=== PATIENT | female | born 1945 | race Caucasian/White ===

== ENCOUNTER 2016-02-08 04:57 | Observation (INO) | payer MEDICARE, OTHER ==
[~2016-02-08] VITALS: Ht 162.6 cm; Wt 106.2 kg
[2016-02-08] MEDS ORDERED: ASPIRIN 81 MG TAB.CHEW PO ONE (05:30)
[2016-02-08] MEDS ORDERED: MORPHINE SULFATE 2 MG/ML DISP.SYRIN. IV PRN (05:30)
[2016-02-08] MEDS ORDERED: ONDANSETRON PF 4 MG/2 ML VIAL. IV PRN ×2 (05:30→10:30)
[2016-02-08 05:55] LABS: BASO % 0 % (0-3); CALCIUM 8.7 mg/dL (8.5-10.1); CREATININE 1.2 mg/dL (0.6-1.0); EOS % 0 % (0-3); GFR 44.5; HEMATOCRIT 37.6 % (36.0-47.0); HEMOGLOBIN 11.8 g/dL (12.0-15.5); LYMPH # 1.2 x10^3/uL (1.0-4.8); LYMPH % 10 % (24-48); MEAN CORPUSCULAR HEMOGLOBIN 26 pg (25-35); MEAN CORPUSCULAR HGB CONC 31 g/dL (31-37); MEAN CORPUSCULAR VOLUME 83 fL (79-100); MONO % 6 % (0-9); NEUT % 85 % (31-73); PLATELET COUNT 285 x10^3/uL (140-400); POTASSIUM 4.3 mmol/L (3.5-5.1); RED BLOOD COUNT 4.53 x10^6/uL (3.50-5.40); WHITE BLOOD COUNT 12.4 x10^3/uL (4.0-11.0)
--- NOTE | 2016-02-08 05:57 | PHYS DOC ---
Past Medical History Past Medical History: Anxiety, CAD, Depression, GERD, High Cholesterol, Hypertension, Hypothyroid, Other Additional Past Medical Histor: GOUT, SLEEP APNEA Past Surgical History: Coronary Bypass Surgery Alcohol Use: None Drug Use: None Adult General Chief Complaint Chief Complaint: SHORTNESS OF BREATH HPI HPI 70-year-old female presenting the emergency department with sudden shortness of breath upon awakening tonight. She recently has been diagnosed with sleep apnea after having a colonoscopy and having low saturations. She reports having shortness of breath without chest pain. She does have a history of CABGs 2. She denies nausea or diaphoresis with this shortness of breath. Currently her shortness of breath has resolved. She and her daughter are here concerned that the patient has sleep apnea and does not have current treatment at home further sleep apnea. Onset approximately 2 hours ago. Location lungs. Duration intermittent. Review of Systems Review of Systems ROS negative for fevers chills chest pain nausea diaphoresis. All other review of systems is negative unless otherwise noted in history of present illness. Current Medications Current Medications Current Medications Medications (Trade) Dose Ordered Sig/Dariel Start Time Stop Time Status Last Admin Dose Admin Aspirin (Children'S Aspirin) 324 mg 1X ONCE 02/08/16 05:30 02/08/16 05:31 DC 02/08/16 05:25 324 MG Morphine Sulfate 2 mg PRN Q2HR PRN 02/08/16 05:30 02/09/16 05:29 Ondansetron HCl (Zofran) 4 mg PRN Q8HRS PRN 02/08/16 05:30 02/09/16 05:29 Allergies Allergies Allergies Coded Allergies Type Severity Reaction Last Updated Verified No Known Drug Allergies 02/08/16 No Physical Exam Physical Exam Constitutional: Well developed, well nourished, no acute distress, non-toxic appearance. HENT: Normocephalic, atraumatic, bilateral external ears normal, oropharynx moist, no oral exudates, nose normal. [] Eyes: PERRLA, EOMI, conjunctiva normal, no discharge. Neck: Normal range of motion, no tenderness, supple, no stridor. [] Cardiovascular:Heart rate regular rhythm, no murmur Lungs & Thorax: Bilateral breath sounds clear to auscultation [] Abdomen: Bowel sounds normal, soft, no tenderness, no masses, no pulsatile masses. Skin: Warm, dry, no erythema, no rash. Back: No tenderness, no CVA tenderness. [] Extremities: No tenderness, no cyanosis, no clubbing, ROM intact, no edema. [] Neurologic: Alert and oriented X 3, normal motor function, normal sensory function, no focal deficits noted. Psychologic: Affect normal, judgement normal, mood normal. [] Current Patient Data Vital Signs Vital Signs Date Time Temp Pulse Resp B/P Pulse Ox O2 Delivery O2 Flow Rate FiO2 02/08/16 05:12 97.8 94 20 134/75 95 Room Air 97.8 EKG EKG [] EKG shows sinus rhythm. Regular rate. [place] is within normal limits. Intervals are within normal limits. ST segments congruent. Radiology/Procedures Radiology/Procedures [] Chest x-ray shows cardiomegaly. No acute infiltrate or pneumothorax present. Course & Med Decision Making Course & Med Decision Making Pertinent Labs and Imaging studies reviewed. (See chart for details) 70-year-old female presenting to the emergency department with sudden onset of shortness of breath while she was sleeping which is suggestive of her sleep apnea however, the patient has a history of 2 CABGs in the past. She currently is not treated for his sleep apnea at home and does not have a CPAP and is awaiting a sleep study. On reevaluation the patient's vital signs were afebrile with a mildly increased pulse and mild hypertension. Physical exam was unremarkable. No wheezing or crackles present. EKG unremarkable. Chest x-ray showed general cardiomegaly without any acute cardiopulmonary process. Given the patient's history and lack of treatment for sleep apnea at home. The patient was admitted for serial troponins and possible setup of CPAP at home for her sleep apnea. Dragon Disclaimer Dragon Disclaimer This electronic medical record was generated, in whole or in part, using a voice recognition dictation system. Departure Departure Impression: Primary Impression: Shortness of breath Disposition: ADMITTED INPATIENT Admitting Physician: Marcus Mcdermott Condition: STABLE Referrals: GINGER WHITNEY (PCP) HUSSAIN GUILLEN MD Feb 08, 2016 05:57
[2016-02-08 06:01] LABS: ALBUMIN 3.2 g/dL (3.4-5.0); DIRECT BILIRUBIN 0.1 mg/dL (0.0-0.2); TOTAL BILIRUBIN 0.2 mg/dL (0.2-1.0); TOTAL PROTEIN 6.8 g/dL (6.4-8.2)
[2016-02-08 07:00] VITALS: BP 140/77
--- NOTE | 2016-02-08 07:36 | RAD ---
Indication: Chest pain. Decreased O2 saturations. Technique: AP upright portable chest radiograph was obtained. No comparison is available. Findings: There is cardiomegaly. There is no obvious heart failure. There is no focal airspace disease. Median sternotomy wires are noted. Leads overlie the patient. Impression: Cardiomegaly.
[2016-02-08] MEDS ORDERED: ACETAMINOPHEN 325 MG TABLET. PO PRN (10:30)
[2016-02-08] MEDS ORDERED: hydrALAZINE 20 MG/ML VIAL. IVP PRN (10:30)
[2016-02-08] MEDS ORDERED: ALBUTEROL SULFATE 2.5 MG/3 ML NEBU. NEB PRN (10:30)
--- NOTE | 2016-02-08 10:35 | EKG ---
[facility] [address] [place] [address] Test Date: 2016-02-08 Test Time: 05:12:29 Pat Name: ROSANGELA MIKE Department: Room: Gender: F Night Clerk: : 1945 Requested By: HUSSAIN GUILLEN Order Number: [id number] Reading MD: Measurements Intervals Matthews Rate: 93 P: 44 AK: 172 QRS: 38 QRSD: 82 T: 39 QT: 360 QTc: 450 Interpretive Statements SINUS RHYTHM QRS(T) CONTOUR ABNORMALITY CONSIDER ANTEROLATERAL MYOCARDIAL DAMAGE POSSIBLY ABNORMAL ECG RI6.01 No previous ECG available for comparison
[2016-02-08 11:56] VITALS: BP 122/60
[2016-02-08] MEDS: IPRATRPIUM/ALBUTEROL 0.5/2.5MG 3 ML NEBU. NEB SCH ×3 (12:32→19:07)
--- NOTE | 2016-02-08 12:37 | PDOC2 ---
CONSULT Date of Consult Date of Consult DATE: 02/08/16 TIME: 12:30 Reason for Consult Reason for Consult: Shortness of breath Referring Physician Referring Physician: Dr. Mcdermott Identification/Chief Complaint Chief Complaint Shortness of breath Source Source: Patient History of Present Illness Reason for Visit: The patient is a 70-year-old female with a history of bypass surgery and recently diagnosed sleep apnea. He reports episodes of increasing shortness of breath for the last day or 2. She was evaluated in the emergency room. EKG shows no acute ischemic changes. Initial troponin is 0.018. BNP is mildly elevated at 3122. Chest x-ray shows no acute changes. Overnight the patient has been feeling better. She is attempting to increase her activities this morning. Past Medical History Cardiovascular: CAD, CHF, HTN, Hyperlipidemia Pulmonary: Other (sleep apnea) GI: GERD Psych: Anxiety Endocrine: Hypothyroidism Past Surgical History Past Surgical History: CABG Family History Family History: Heart Disease Social History No Current Problem List Problem List Problems Medical Problems: (1) Shortness of breath Status: Acute Current Medications Current Medications Current Medications Aspirin (Children'S Aspirin) 324 mg 1X ONCE PO Last administered on at 05:25; Start 02/08/16 at 05:30; Stop 02/08/16 at 05:31; Status DC Ondansetron HCl (Zofran) 4 mg PRN Q8HRS PRN IV NAUSEA/VOMITING; Start at 05:30; Stop 02/09/16 at 05:29 Morphine Sulfate 2 mg PRN Q2HR PRN IV PAIN; Start 02/08/16 at 05:30; Stop 02/08 at 05:29 Acetaminophen (Tylenol) 650 mg PRN Q6HRS PRN PO MILD PAIN / TEMP; Start at 10:30 Ondansetron HCl (Zofran) 4 mg PRN Q6HRS PRN IV NAUSEA/VOMITING; Start at 10:30 Albuterol/ Ipratropium (Duoneb) 3 ml RTQID NEB ; Start 02/08/16 at 12:00 Albuterol Sulfate (Ventolin Neb Soln) 2.5 mg PRN Q4HRS PRN NEB SHORTNESS OF BREATH; Start 02/08/16 at 10:30 Hydralazine HCl (Apresoline) 10 mg PRN Q4HRS PRN IVP ELEVATED BP, SEE COMMENTS ; Start 02/08/16 at 10:30 Enoxaparin Sodium (Lovenox 40mg Syringe) 40 mg Q24H SQ ; Start 02/08/16 at 11: 00 Allergies Allergies: Coded Allergies: No Known Drug Allergies (Unverified , 02/08/16) ROS Respiratory: YES: SOB with excertion, Shortness of breath Physical Exam General: No acute distress HEENT: Atraumatic Lungs: Other (mildly decreased breath sounds) Heart: Regular rate Abdomen: Normal bowel sounds Vitals VITALS Vital Signs Date Time Temp Pulse Resp B/P Pulse Ox O2 Delivery O2 Flow Rate FiO2 02/08/16 11:56 96.3 97 18 122/60 95 Room Air 96.3 Labs Labs Laboratory Tests Test 02/08/16 05:20 White Blood Count 12.4x10^3/uL (4.0-11.0) Red Blood Count 4.53x10^6/uL (3.50-5.40) Hemoglobin 11.8g/dL (12.0-15.5) Hematocrit 37.6% (36.0-47.0) Mean Corpuscular Volume 83fL (79-100) Mean Corpuscular Hemoglobin 26pg (25-35) Mean Corpuscular Hemoglobin Concent 31g/dL (31-37) Red Cell Distribution Width 18.0% (11.5-14.5) Platelet Count 285x10^3/uL (140-400) Neutrophils (%) (Auto) 85% (31-73) Lymphocytes (%) (Auto) 10% (24-48) Monocytes (%) (Auto) 6% (0-9) Eosinophils (%) (Auto) 0% (0-3) Basophils (%) (Auto) 0% (0-3) Neutrophils # (Auto) 10.5x10^3uL (1.8-7.7) Lymphocytes # (Auto) 1.2x10^3/uL (1.0-4.8) Monocytes # (Auto) 0.7x10^3/uL (0.0-1.1) Eosinophils # (Auto) 0.0x10^3/uL (0.0-0.7) Basophils # (Auto) 0.0x10^3/uL (0.0-0.2) Sodium Level 143mmol/L (136-145) Potassium Level 4.3mmol/L (3.5-5.1) Chloride Level 104mmol/L (98-107) Carbon Dioxide Level 30mmol/L (21-32) Anion Gap 9 (6-14) Blood Urea Nitrogen 28mg/dL (7-20) Creatinine 1.2mg/dL (0.6-1.0) Estimated GFR (Cockcroft-Gault) 44.5 Glucose Level 128mg/dL (70-99) Calcium Level 8.7mg/dL (8.5-10.1) Total Bilirubin 0.2mg/dL (0.2-1.0) Direct Bilirubin 0.1mg/dL (0.0-0.2) Aspartate Amino Transf (AST/SGOT) 36U/L (15-37) Alanine Aminotransferase (ALT/SGPT) 49U/L (14-59) Alkaline Phosphatase 102U/L (46-116) Troponin I Quantitative 0.018ng/mL (0.000-0.055) ZU-Sfo-S-Type Natriuretic Peptide 3122pg/mL (0-124) Total Protein 6.8g/dL (6.4-8.2) Albumin 3.2g/dL (3.4-5.0) Lipase 192U/L (73-393) Laboratory Tests Test 02/08/16 05:20 White Blood Count 12.4x10^3/uL (4.0-11.0) Red Blood Count 4.53x10^6/uL (3.50-5.40) Hemoglobin 11.8g/dL (12.0-15.5) Hematocrit 37.6% (36.0-47.0) Mean Corpuscular Volume 83fL (79-100) Mean Corpuscular Hemoglobin 26pg (25-35) Mean Corpuscular Hemoglobin Concent 31g/dL (31-37) Red Cell Distribution Width 18.0% (11.5-14.5) Platelet Count 285x10^3/uL (140-400) Neutrophils (%) (Auto) 85% (31-73) Lymphocytes (%) (Auto) 10% (24-48) Monocytes (%) (Auto) 6% (0-9) Eosinophils (%) (Auto) 0% (0-3) Basophils (%) (Auto) 0% (0-3) Neutrophils # (Auto) 10.5x10^3uL (1.8-7.7) Lymphocytes # (Auto) 1.2x10^3/uL (1.0-4.8) Monocytes # (Auto) 0.7x10^3/uL (0.0-1.1) Eosinophils # (Auto) 0.0x10^3/uL (0.0-0.7) Basophils # (Auto) 0.0x10^3/uL (0.0-0.2) Sodium Level 143mmol/L (136-145) Potassium Level 4.3mmol/L (3.5-5.1) Chloride Level 104mmol/L (98-107) Carbon Dioxide Level 30mmol/L (21-32) Anion Gap 9 (6-14) Blood Urea Nitrogen 28mg/dL (7-20) Creatinine 1.2mg/dL (0.6-1.0) Estimated GFR (Cockcroft-Gault) 44.5 Glucose Level 128mg/dL (70-99) Calcium Level 8.7mg/dL (8.5-10.1) Total Bilirubin 0.2mg/dL (0.2-1.0) Direct Bilirubin 0.1mg/dL (0.0-0.2) Aspartate Amino Transf (AST/SGOT) 36U/L (15-37) Alanine Aminotransferase (ALT/SGPT) 49U/L (14-59) Alkaline Phosphatase 102U/L (46-116) Troponin I Quantitative 0.018ng/mL (0.000-0.055) KZ-Ewx-S-Type Natriuretic Peptide 3122pg/mL (0-124) Total Protein 6.8g/dL (6.4-8.2) Albumin 3.2g/dL (3.4-5.0) Lipase 192U/L (73-393) Images Images Chest x-ray with cardiomegaly but no acute changes. Assessment/Plan Assessment/Plan 1. Probable sleep apnea. Patient is being evaluated. She however is feeling much better. 2. Mild acute on chronic systolic heart failure. The patient is feeling better today. BNP is mildly elevated. Mild diuresis. Would continue present treatment and check an echocardiogram. 3. History of bypass surgery. Mildly elevated BNP as above. No chest pain. No acute EKG changes. 4. Hypertension. Blood pressure is reasonably controlled. Continue present treatments. 5. Hypothyroidism. Continue present medications. Thank you for allowing us to participate in the care of your pleasant patient. LARS ODONNELL MD Feb 08, 2016 12:37
[2016-02-08] MEDS ORDERED: FUROSEMIDE 20 MG/2 ML VIAL IVP ONE ×2 (12:45→17:00)
--- NOTE | 2016-02-08 13:56 | PDOC1 ---
History and Physical Date of Admission Date of Admission 02/08/16 Identification/Chief Complaint Chief Complaint sob Problems: Source Source: Chart review, Patient History of Present Illness History of Present Illness HPI HPI 70-year-old female presenting the emergency department with sudden shortness of breath upon awakening tonight. She had cabg 09/2014, denies CHF, copd, PREVious smoker. She feels no exertional dypsnea, but feels sob at night waking her up and scared. No cough or sputum for fever, chills. She said her saturation was low during sleep and colonoscopy, but not diagonsed with SHERRY or COPD. Past Medical History Cardiovascular: CAD, CHF, HTN, Hyperlipidemia Pulmonary: Other (sleep apnea) GI: GERD Psych: Anxiety Endocrine: Hypothyroidism Past Surgical History Past Surgical History: CABG Family History Family History: Heart Disease Social History Smoke: Quit ALCOHOL: social Drugs: None Current Problem List Problem List Problems Medical Problems: (1) Shortness of breath Status: Acute Current Medications Current Medications Current Medications Medications (Trade) Dose Ordered Sig/Dariel Start Time Stop Time Status Last Admin Dose Admin Acetaminophen (Tylenol) 650 mg PRN Q6HRS PRN 02/08/16 10:30 Albuterol Sulfate (Ventolin Neb Soln) 2.5 mg PRN Q4HRS PRN 02/08/16 10:30 Albuterol/ Ipratropium (Duoneb) 3 ml RTQID 02/08/16 12:00 02/08/16 12:32 3 ML Aspirin (Children'S Aspirin) 324 mg 1X ONCE 02/08/16 05:30 02/08/16 05:31 DC 02/08/16 05:25 324 MG Enoxaparin Sodium (Lovenox 40mg Syringe) 40 mg Q24H 02/08/16 11:00 Furosemide (Lasix) 20 mg 1X ONCE 02/08/16 12:45 02/08/16 12:47 DC Hydralazine HCl (Apresoline) 10 mg PRN Q4HRS PRN 02/08/16 10:30 Morphine Sulfate 2 mg PRN Q2HR PRN 02/08/16 05:30 02/09/16 05:29 Ondansetron HCl (Zofran) 4 mg PRN Q6HRS PRN 02/08/16 10:30 Allergies Allergies Allergies Coded Allergies Type Severity Reaction Last Updated Verified No Known Drug Allergies 02/08/16 No ROS Review of System CONSTITUTIONAL: No fever or chills EYES: No recent changes SKIN: No rash or itching CARDIOVASCULAR: No chest pain, syncope, palpitations, or edema RESPIRATORY: No SOB or cough GASTROINTESTINAL: No nausea, vomiting or abdominal pain NEUROLOGICAL: No headaches or weakness ENDOCRINE: No cold or heat intolerance GENITOURINARY: No urgency or frequency of urination MUSCULOSKELETAL: No back pain or joint pain LYMPHATICS: No enlarged lymph nodes PSYCHIATRIC: No anxiety or depression Physical Exam Physical Exam GEN.: No apparent distress. Alert and oriented. HEENT: Head is normocephalic, atraumatic NECK: Supple. LUNGS: Clear to auscultation. HEART: RRR, S1, S2 present. Peripheral pulses intact ABDOMEN: Soft, nontender. Positive bowel sounds. EXTREMITIES: Without any cyanosis. NEUROLOGIC: Normal speech, normal tone PSYCHIATRIC: Normal affect, normal mood. SKIN: No ulcerations Vitals Vitals Vital Signs Date Time Temp Pulse Resp B/P Pulse Ox O2 Delivery O2 Flow Rate FiO2 02/08/16 12:34 94 Room Air 02/08/16 11:56 96.3 97 18 122/60 96.3 Labs Labs Laboratory Tests Test 02/08/16 05:20 02/08/16 11:35 White Blood Count 12.4x10^3/uL (4.0-11.0) Red Blood Count 4.53x10^6/uL (3.50-5.40) Hemoglobin 11.8g/dL (12.0-15.5) Hematocrit 37.6% (36.0-47.0) Mean Corpuscular Volume 83fL (79-100) Mean Corpuscular Hemoglobin 26pg (25-35) Mean Corpuscular Hemoglobin Concent 31g/dL (31-37) Red Cell Distribution Width 18.0% (11.5-14.5) Platelet Count 285x10^3/uL (140-400) Neutrophils (%) (Auto) 85% (31-73) Lymphocytes (%) (Auto) 10% (24-48) Monocytes (%) (Auto) 6% (0-9) Eosinophils (%) (Auto) 0% (0-3) Basophils (%) (Auto) 0% (0-3) Neutrophils # (Auto) 10.5x10^3uL (1.8-7.7) Lymphocytes # (Auto) 1.2x10^3/uL (1.0-4.8) Monocytes # (Auto) 0.7x10^3/uL (0.0-1.1) Eosinophils # (Auto) 0.0x10^3/uL (0.0-0.7) Basophils # (Auto) 0.0x10^3/uL (0.0-0.2) Sodium Level 143mmol/L (136-145) Potassium Level 4.3mmol/L (3.5-5.1) Chloride Level 104mmol/L (98-107) Carbon Dioxide Level 30mmol/L (21-32) Anion Gap 9 (6-14) Blood Urea Nitrogen 28mg/dL (7-20) Creatinine 1.2mg/dL (0.6-1.0) Estimated GFR (Cockcroft-Gault) 44.5 Glucose Level 128mg/dL (70-99) Calcium Level 8.7mg/dL (8.5-10.1) Total Bilirubin 0.2mg/dL (0.2-1.0) Direct Bilirubin 0.1mg/dL (0.0-0.2) Aspartate Amino Transf (AST/SGOT) 36U/L (15-37) Alanine Aminotransferase (ALT/SGPT) 49U/L (14-59) Alkaline Phosphatase 102U/L (46-116) Troponin I Quantitative 0.018ng/mL (0.000-0.055) < 0.017ng/mL (0.000-0.055) YF-Pcu-R-Type Natriuretic Peptide 3122pg/mL (0-124) Total Protein 6.8g/dL (6.4-8.2) Albumin 3.2g/dL (3.4-5.0) Lipase 192U/L (73-393) Laboratory Tests Test 02/08/16 05:20 02/08/16 11:35 White Blood Count 12.4x10^3/uL (4.0-11.0) Red Blood Count 4.53x10^6/uL (3.50-5.40) Hemoglobin 11.8g/dL (12.0-15.5) Hematocrit 37.6% (36.0-47.0) Mean Corpuscular Volume 83fL (79-100) Mean Corpuscular Hemoglobin 26pg (25-35) Mean Corpuscular Hemoglobin Concent 31g/dL (31-37) Red Cell Distribution Width 18.0% (11.5-14.5) Platelet Count 285x10^3/uL (140-400) Neutrophils (%) (Auto) 85% (31-73) Lymphocytes (%) (Auto) 10% (24-48) Monocytes (%) (Auto) 6% (0-9) Eosinophils (%) (Auto) 0% (0-3) Basophils (%) (Auto) 0% (0-3) Neutrophils # (Auto) 10.5x10^3uL (1.8-7.7) Lymphocytes # (Auto) 1.2x10^3/uL (1.0-4.8) Monocytes # (Auto) 0.7x10^3/uL (0.0-1.1) Eosinophils # (Auto) 0.0x10^3/uL (0.0-0.7) Basophils # (Auto) 0.0x10^3/uL (0.0-0.2) Sodium Level 143mmol/L (136-145) Potassium Level 4.3mmol/L (3.5-5.1) Chloride Level 104mmol/L (98-107) Carbon Dioxide Level 30mmol/L (21-32) Anion Gap 9 (6-14) Blood Urea Nitrogen 28mg/dL (7-20) Creatinine 1.2mg/dL (0.6-1.0) Estimated GFR (Cockcroft-Gault) 44.5 Glucose Level 128mg/dL (70-99) Calcium Level 8.7mg/dL (8.5-10.1) Total Bilirubin 0.2mg/dL (0.2-1.0) Direct Bilirubin 0.1mg/dL (0.0-0.2) Aspartate Amino Transf (AST/SGOT) 36U/L (15-37) Alanine Aminotransferase (ALT/SGPT) 49U/L (14-59) Alkaline Phosphatase 102U/L (46-116) Troponin I Quantitative 0.018ng/mL (0.000-0.055) < 0.017ng/mL (0.000-0.055) JJ-Bsg-J-Type Natriuretic Peptide 3122pg/mL (0-124) Total Protein 6.8g/dL (6.4-8.2) Albumin 3.2g/dL (3.4-5.0) Lipase 192U/L (73-393) VTE Prophylaxis Ordered VTE Prophylaxis Devices: Yes VTE Pharmacological Prophylaxi: Yes Assessment/Plan Assessment/Plan 1. dyspnea, 2/2 to SHERRY likely 2. h/o CAD with CABG 3. STABLE chf, possible systolic 4. anxiety 5. GERD 6. HLD 7. HTN 8. hypothyroidism plan: 1. pulm, card consult 2. echo pending 3. need home meds 4. duoneb lasix x1 with card hope to dc tmr and fu as outpt for sleep study FOUZIA DAMON MD Feb 08, 2016 13:56
[2016-02-08 14:05] VITALS: BP 122/60
[2016-02-08 15:00] VITALS: BP 131/48
[2016-02-08] MEDS: ENOXAPARIN 40 MG/0.4 ML DISP.SYRIN. SQ SCH (16:52)
--- NOTE | 2016-02-08 17:33 | PDOC ---
PULMONARY PROGRESS NOTES Vitals Vital Signs Date Time Temp Pulse Resp B/P Pulse Ox O2 Delivery O2 Flow Rate FiO2 02/08/16 15:00 97.7 109 20 131/48 95 Room Air 97.7 Labs Laboratory Tests Test 02/08/16 05:20 02/08/16 11:35 White Blood Count 12.4x10^3/uL (4.0-11.0) Red Blood Count 4.53x10^6/uL (3.50-5.40) Hemoglobin 11.8g/dL (12.0-15.5) Hematocrit 37.6% (36.0-47.0) Mean Corpuscular Volume 83fL (79-100) Mean Corpuscular Hemoglobin 26pg (25-35) Mean Corpuscular Hemoglobin Concent 31g/dL (31-37) Red Cell Distribution Width 18.0% (11.5-14.5) Platelet Count 285x10^3/uL (140-400) Neutrophils (%) (Auto) 85% (31-73) Lymphocytes (%) (Auto) 10% (24-48) Monocytes (%) (Auto) 6% (0-9) Eosinophils (%) (Auto) 0% (0-3) Basophils (%) (Auto) 0% (0-3) Neutrophils # (Auto) 10.5x10^3uL (1.8-7.7) Lymphocytes # (Auto) 1.2x10^3/uL (1.0-4.8) Monocytes # (Auto) 0.7x10^3/uL (0.0-1.1) Eosinophils # (Auto) 0.0x10^3/uL (0.0-0.7) Basophils # (Auto) 0.0x10^3/uL (0.0-0.2) Sodium Level 143mmol/L (136-145) Potassium Level 4.3mmol/L (3.5-5.1) Chloride Level 104mmol/L (98-107) Carbon Dioxide Level 30mmol/L (21-32) Anion Gap 9 (6-14) Blood Urea Nitrogen 28mg/dL (7-20) Creatinine 1.2mg/dL (0.6-1.0) Estimated GFR (Cockcroft-Gault) 44.5 Glucose Level 128mg/dL (70-99) Calcium Level 8.7mg/dL (8.5-10.1) Total Bilirubin 0.2mg/dL (0.2-1.0) Direct Bilirubin 0.1mg/dL (0.0-0.2) Aspartate Amino Transf (AST/SGOT) 36U/L (15-37) Alanine Aminotransferase (ALT/SGPT) 49U/L (14-59) Alkaline Phosphatase 102U/L (46-116) Troponin I Quantitative 0.018ng/mL (0.000-0.055) < 0.017ng/mL (0.000-0.055) LM-Cxz-S-Type Natriuretic Peptide 3122pg/mL (0-124) Total Protein 6.8g/dL (6.4-8.2) Albumin 3.2g/dL (3.4-5.0) Lipase 192U/L (73-393) Laboratory Tests Test 02/08/16 05:20 02/08/16 11:35 White Blood Count 12.4x10^3/uL (4.0-11.0) Red Blood Count 4.53x10^6/uL (3.50-5.40) Hemoglobin 11.8g/dL (12.0-15.5) Hematocrit 37.6% (36.0-47.0) Mean Corpuscular Volume 83fL (79-100) Mean Corpuscular Hemoglobin 26pg (25-35) Mean Corpuscular Hemoglobin Concent 31g/dL (31-37) Red Cell Distribution Width 18.0% (11.5-14.5) Platelet Count 285x10^3/uL (140-400) Neutrophils (%) (Auto) 85% (31-73) Lymphocytes (%) (Auto) 10% (24-48) Monocytes (%) (Auto) 6% (0-9) Eosinophils (%) (Auto) 0% (0-3) Basophils (%) (Auto) 0% (0-3) Neutrophils # (Auto) 10.5x10^3uL (1.8-7.7) Lymphocytes # (Auto) 1.2x10^3/uL (1.0-4.8) Monocytes # (Auto) 0.7x10^3/uL (0.0-1.1) Eosinophils # (Auto) 0.0x10^3/uL (0.0-0.7) Basophils # (Auto) 0.0x10^3/uL (0.0-0.2) Sodium Level 143mmol/L (136-145) Potassium Level 4.3mmol/L (3.5-5.1) Chloride Level 104mmol/L (98-107) Carbon Dioxide Level 30mmol/L (21-32) Anion Gap 9 (6-14) Blood Urea Nitrogen 28mg/dL (7-20) Creatinine 1.2mg/dL (0.6-1.0) Estimated GFR (Cockcroft-Gault) 44.5 Glucose Level 128mg/dL (70-99) Calcium Level 8.7mg/dL (8.5-10.1) Total Bilirubin 0.2mg/dL (0.2-1.0) Direct Bilirubin 0.1mg/dL (0.0-0.2) Aspartate Amino Transf (AST/SGOT) 36U/L (15-37) Alanine Aminotransferase (ALT/SGPT) 49U/L (14-59) Alkaline Phosphatase 102U/L (46-116) Troponin I Quantitative 0.018ng/mL (0.000-0.055) < 0.017ng/mL (0.000-0.055) PU-Wrz-P-Type Natriuretic Peptide 3122pg/mL (0-124) Total Protein 6.8g/dL (6.4-8.2) Albumin 3.2g/dL (3.4-5.0) Lipase 192U/L (73-393) Impression . FULL CONSULT DICTATED SEE ORDERS THANKS WILL CHECK TSH, NOCT PAULINE OSEGUERA MD Feb 08, 2016 17:33
[2016-02-08] MEDS ORDERED: POTA20TA82 PO (18:04)
[2016-02-08] MEDS ORDERED: VENL225T PO (18:04)
[2016-02-08] MEDS ORDERED: METO25TA4 PO (18:04)
[2016-02-08] MEDS ORDERED: LEVO50TA PO (18:04)
[2016-02-08] MEDS ORDERED: ATOR40TA PO (18:04)
[2016-02-08] MEDS ORDERED: OMEP20TA63 PO (18:04)
[2016-02-08] MEDS ORDERED: ALLO300T PO (18:04)
[2016-02-08] MEDS ORDERED: ASPI81TA2 PO (18:04)
[2016-02-08] MEDS ORDERED: ARIP5TAB6 PO (18:04)
[2016-02-08] MEDS ORDERED: ALPR0.5T PO (18:04)
[2016-02-08] MEDS ORDERED: MAGN400T3 PO (18:04)
[2016-02-08 19:00] VITALS: BP 138/72
[2016-02-08 22:51] VITALS: BP 139/74
[2016-02-09 02:57] VITALS: BP 140/74
[2016-02-09 05:42] LABS: CALCIUM 8.3 mg/dL (8.5-10.1); CREATININE 1.2 mg/dL (0.6-1.0); GFR 44.5; POTASSIUM 4.2 mmol/L (3.5-5.1)
[2016-02-09 05:43] LABS: CHOLESTEROL/HDL RATIO 2.6
[2016-02-09 07:45] VITALS: BP 168/91
[2016-02-09] MEDS: IPRATRPIUM/ALBUTEROL 0.5/2.5MG 3 ML NEBU. NEB SCH ×4 (07:55→19:17)
--- NOTE | 2016-02-09 09:24 | CONS ---
DATE OF CONSULTATION: 02/08/2016 ATTENDING PHYSICIAN: Dr. Mcdermott. REASON FOR CONSULTATION: The patient is seen in pulmonary consultation at the request of Dr. Mcdermott for possible obstructive sleep apnea. HISTORY OF PRESENT ILLNESS: The patient is a 70-year-old female who presented to the Emergency Room because she was awake during the nighttime gasping for air. She has had a previous attempt at a polysomnogram 5 years ago, but was unsuccessful as a consequence of not being able to sleep. The patient has had some bronchitis and acute exacerbation of COPD. She states that the bronchitis has improved. She has excessive daytime sleepiness, awakens multiple times throughout the night gasping for air. She was also told that she had low nocturnal oxygen saturation. PAST MEDICAL HISTORY: Remarkable for coronary artery disease with previous coronary artery bypass grafting, congestive heart failure, hypertension, hyperlipidemia, gastroesophageal reflux, anxiety, hypothyroidism, COPD. PAST SURGICAL HISTORY: Status post coronary artery bypass grafting. FAMILY HISTORY: Remarkable for heart disease. SOCIAL HISTORY: The patient continues to smoke. Denies any excessive alcohol intake. ALLERGIES: No known drug allergies. HOME MEDICATIONS: She was using p.r.n. albuterol. CURRENT MEDICATIONS: List was reviewed. Please see the MRAD. REVIEW OF SYSTEMS: As indicated above, otherwise, 10-point system was reviewed and negative. PHYSICAL EXAMINATION: GENERAL: Obese individual with a body mass index of 40.5, in no respiratory distress. VITAL SIGNS: Room air saturation 94%. HEENT: Eyes, the sclerae were nonicteric. NECK: Jugular venous distention was not elevated. No lymphadenopathy. CHEST: Full expansion. LUNGS: Adequate airway flow with no wheezes. CARDIOVASCULAR: Regular rate and rhythm with S1, S2, no S3. ABDOMEN: Soft, obese. EXTREMITIES: No clubbing, cyanosis. Minimal edema. NEUROLOGIC: The patient was awake, alert, following commands. A detailed neuro exam was not performed. LABORATORY DATA: Reviewed. Chest x-ray showed cardiomegaly. White count was noted. Hemoglobin and hematocrit noted. Electrolytes were noted. BNP was elevated. Troponin was not elevated. IMPRESSION: 1. Clinical presentation compatible with obstructive sleep apnea. 2. Chronic obstructive pulmonary disease with recent acute exacerbation. 3. Coronary artery disease with previous coronary artery bypass grafting. 4. Obesity. 5. Hypertension. 6. Tobacco dependence. 7. Hypothyroidism. PLAN: 1. We will perform nocturnal desaturation study. 2. Set up outpatient polysomnogram. 3. The patient instructed on the importance of discontinuing her tobacco use. 4. Check TSH. I do appreciate the privilege in sharing in the patient's care. PAULINE GREEN MD DR: ADRIANNA/aleena JOB#: [id number] / [id number]
[2016-02-09] MEDS ORDERED: VENLAFAXINE 75 MG TABLET. PO SCH (09:30)
[2016-02-09] MEDS: ALLOPURINOL 300 MG TABLET. PO SCH (10:16)
[2016-02-09] MEDS: MAGNESIUM OXIDE 400 MG TABLET PO SCH (10:16)
[2016-02-09] MEDS: POTASSIUM CHLORIDE 20 MEQ TABLET.ER. PO SCH (10:16)
[2016-02-09] MEDS: ARIPIPRAZOLE 5 MG TABLET. PO SCH (10:16)
[2016-02-09] MEDS: ALPRAZOLAM 0.5 MG TABLET PO SCH ×2 (10:17→20:22)
[2016-02-09] MEDS: LEVOTHYROXINE 50 MCG TABLET PO SCH (10:17)
[2016-02-09] MEDS: METOPROLOL TART IMMED RELEASE 25 MG TABLET PO SCH ×2 (10:17→20:22)
[2016-02-09] MEDS: ASPIRIN 81 MG TAB.CHEW PO SCH (10:17)
[2016-02-09 10:38] VITALS: BP 119/75
[2016-02-09] MEDS: PANTOPRAZOLE 40 MG TABLET. PO SCH (11:48)
[2016-02-09] MEDS: ENOXAPARIN 40 MG/0.4 ML DISP.SYRIN. SQ SCH ×2 (11:48→20:28)
--- NOTE | 2016-02-09 13:17 | PDOC ---
PROGRESS NOTES Subjective Subjective The patient looks and feels better today. Objective Objective Vital Signs Date Time Temp Pulse Resp B/P Pulse Ox O2 Delivery O2 Flow Rate FiO2 02/09/16 11:15 97 Room Air 02/09/16 10:38 97.8 108 20 119/75 97.8 Intake and Output 02/09/16 07:00 Intake Total 718 ml Output Total 2350 ml Balance -1632 ml Intake Oral 718 ml Output Urine Total 2350 ml Physical Exam Abdomen: Normal bowel sounds Heart: Regular rate General: No acute distress Lungs: Other (slightly decreased breath sounds) Assessment Assessment Problems Medical Problems: (1) Shortness of breath Status: Acute Assessment/Plan 1. Probable sleep apnea. The patient is improved. Continue as per the pulmonary service. 2. Mild acute on chronic systolic heart failure. The patient is feeling better today. BNP was mildly elevated. Echocardiogram today. 3. History of bypass surgery. Mildly elevated BNP as above. No chest pain. No acute EKG changes. 4. Hypertension. Blood pressure is reasonably controlled. Continue present treatments. 5. Hypothyroidism. Continue present medications. Comment Review of Relevant I have reviewed the following items jarocho (where applicable) has been applied. Labs Laboratory Tests Test 02/08/16 05:20 02/08/16 11:35 02/08/16 17:35 02/09/16 04:21 White Blood Count 12.4x10^3/uL (4.0-11.0) Red Blood Count 4.53x10^6/uL (3.50-5.40) Hemoglobin 11.8g/dL (12.0-15.5) Hematocrit 37.6% (36.0-47.0) Mean Corpuscular Volume 83fL (79-100) Mean Corpuscular Hemoglobin 26pg (25-35) Mean Corpuscular Hemoglobin Concent 31g/dL (31-37) Red Cell Distribution Width 18.0% (11.5-14.5) Platelet Count 285x10^3/uL (140-400) Neutrophils (%) (Auto) 85% (31-73) Lymphocytes (%) (Auto) 10% (24-48) Monocytes (%) (Auto) 6% (0-9) Eosinophils (%) (Auto) 0% (0-3) Basophils (%) (Auto) 0% (0-3) Neutrophils # (Auto) 10.5x10^3uL (1.8-7.7) Lymphocytes # (Auto) 1.2x10^3/uL (1.0-4.8) Monocytes # (Auto) 0.7x10^3/uL (0.0-1.1) Eosinophils # (Auto) 0.0x10^3/uL (0.0-0.7) Basophils # (Auto) 0.0x10^3/uL (0.0-0.2) Sodium Level 143mmol/L (136-145) 146mmol/L (136-145) Potassium Level 4.3mmol/L (3.5-5.1) 4.2mmol/L (3.5-5.1) Chloride Level 104mmol/L (98-107) 105mmol/L (98-107) Carbon Dioxide Level 30mmol/L (21-32) 32mmol/L (21-32) Anion Gap 9 (6-14) 9 (6-14) Blood Urea Nitrogen 28mg/dL (7-20) 29mg/dL (7-20) Creatinine 1.2mg/dL (0.6-1.0) 1.2mg/dL (0.6-1.0) Estimated GFR (Cockcroft-Gault) 44.5 44.5 Glucose Level 128mg/dL (70-99) 109mg/dL (70-99) Calcium Level 8.7mg/dL (8.5-10.1) 8.3mg/dL (8.5-10.1) Total Bilirubin 0.2mg/dL (0.2-1.0) Direct Bilirubin 0.1mg/dL (0.0-0.2) Aspartate Amino Transf (AST/SGOT) 36U/L (15-37) Alanine Aminotransferase (ALT/SGPT) 49U/L (14-59) Alkaline Phosphatase 102U/L (46-116) Troponin I Quantitative 0.018ng/mL (0.000-0.055) < 0.017ng/mL (0.000-0.055) < 0.017ng/mL (0.000-0.055) 0.029ng/mL (0.000-0.055) UQ-Civ-M-Type Natriuretic Peptide 3122pg/mL (0-124) Total Protein 6.8g/dL (6.4-8.2) Albumin 3.2g/dL (3.4-5.0) Lipase 192U/L (73-393) Thyroid Stimulating Hormone (TSH) 1.930uIU/mL (0.358-3.74) Triglycerides Level 138mg/dL (0-150) Cholesterol Level 161mg/dL (0-200) LDL Cholesterol, Calculated 71mg/dL (0-100) VLDL Cholesterol, Calculated 28mg/dL (0-40) HDL Cholesterol 62mg/dL (40-60) Cholesterol/HDL Ratio 2.6 Laboratory Tests Test 02/08/16 17:35 02/09/16 04:21 Troponin I Quantitative < 0.017ng/mL (0.000-0.055) 0.029ng/mL (0.000-0.055) Thyroid Stimulating Hormone (TSH) 1.930uIU/mL (0.358-3.74) Sodium Level 146mmol/L (136-145) Potassium Level 4.2mmol/L (3.5-5.1) Chloride Level 105mmol/L (98-107) Carbon Dioxide Level 32mmol/L (21-32) Anion Gap 9 (6-14) Blood Urea Nitrogen 29mg/dL (7-20) Creatinine 1.2mg/dL (0.6-1.0) Estimated GFR (Cockcroft-Gault) 44.5 Glucose Level 109mg/dL (70-99) Calcium Level 8.3mg/dL (8.5-10.1) Triglycerides Level 138mg/dL (0-150) Cholesterol Level 161mg/dL (0-200) LDL Cholesterol, Calculated 71mg/dL (0-100) VLDL Cholesterol, Calculated 28mg/dL (0-40) HDL Cholesterol 62mg/dL (40-60) Cholesterol/HDL Ratio 2.6 Medications Current Medications Aspirin (Children'S Aspirin) 324 mg 1X ONCE PO Last administered on at 05:25; Start 02/08/16 at 05:30; Stop 02/08/16 at 05:31; Status DC Ondansetron HCl (Zofran) 4 mg PRN Q8HRS PRN IV NAUSEA/VOMITING; Start at 05:30; Stop 02/09/16 at 05:29; Status DC Morphine Sulfate 2 mg PRN Q2HR PRN IV PAIN; Start 02/08/16 at 05:30; Stop 02/08 at 05:29; Status DC Acetaminophen (Tylenol) 650 mg PRN Q6HRS PRN PO MILD PAIN / TEMP; Start at 10:30 Ondansetron HCl (Zofran) 4 mg PRN Q6HRS PRN IV NAUSEA/VOMITING; Start at 10:30 Albuterol/ Ipratropium (Duoneb) 3 ml RTQID NEB Last administered on 02/09/16 11 :15; Start 02/08/16 at 12:00 Albuterol Sulfate (Ventolin Neb Soln) 2.5 mg PRN Q4HRS PRN NEB SHORTNESS OF BREATH Last administered on 02/09/16 04:43; Start 02/08/16 at 10:30 Hydralazine HCl (Apresoline) 10 mg PRN Q4HRS PRN IVP ELEVATED BP, SEE COMMENTS ; Start 02/08/16 at 10:30 Enoxaparin Sodium (Lovenox 40mg Syringe) 40 mg Q24H SQ Last administered on 02/08 11:48; Start 02/08/16 at 11:00 Furosemide (Lasix) 20 mg 1X ONCE IVP ; Start 02/08/16 at 12:45; Stop at 12:46; Status Cancel Furosemide (Lasix) 20 mg 1X ONCE IVP Last administered on 02/08/16at 17:34; Start 02/08/16 at 17:00; Stop 02/08/16 at 17:01; Status DC Allopurinol (Zyloprim) 300 mg DAILY PO Last administered on 02/09/16 10:16; Start 02/09/16 at 10:00 Alprazolam (Xanax) 0.5 mg BID PO Last administered on 02/09/16 10:17; Start 02/09/16 at 10:00 Aripiprazole (Abilify) 5 mg DAILY PO Last administered on 02/09/16 10:16; Start 02/09/16 at 10:00 Aspirin (Children'S Aspirin) 81 mg DAILY PO Last administered on 02/09/16 10:17 ; Start 02/09/16 at 10:00 Atorvastatin Calcium (Lipitor) 40 mg QHS PO ; Start 02/09/16 at 21:00 Levothyroxine Sodium (Synthroid) 50 mcg DAILY PO Last administered on 02/09/16 10:17; Start 02/09/16 at 10:30 Magnesium Oxide (Magnesium Oxide) 400 mg DAILY PO Last administered on 10:16; Start 02/09/16 at 10:00 Metoprolol Tartrate (Lopressor) 25 mg BID PO Last administered on 02/09/16 10: 17; Start 02/09/16 at 10:00 Pantoprazole Sodium (Protonix) 40 mg DAILYAC PO Last administered on 02/09/16 11:48; Start 02/09/16 at 11:30 Potassium Chloride (Klor-Con) 20 meq DAILYWBKFT PO Last administered on 10:16; Start 02/09/16 at 10:00 Venlafaxine HCl (Effexor) 225 mg DAILY PO Last administered on 02/09/16 10:17; Start 02/09/16 at 09:30 Active Scripts Active Reported Xanax (Alprazolam) 0.5 Mg Tablet 1 Tab PO BID Venlafaxine Hcl Er (Venlafaxine Hcl) 225 Mg Tab.er.24 1 Tab PO DAILY Synthroid (Levothyroxine Sodium) 50 Mcg Tablet 1 Tab PO DAILY Prilosec Otc (Omeprazole Magnesium) 20 Mg Tablet.dr 1 Tab PO DAILY Metoprolol Tartrate 25 Mg Tablet 1 Tab PO BID Magnesium Oxide 400 Mg Tablet 1 Tab PO DAILY Lipitor (Atorvastatin Calcium) 40 Mg Tablet 1 Tab PO DAILY Potassium Chloride 20 Meq Tablet.er 20 Meq PO DAILY Aspirin 81 Mg Tab.chew 1 Tab PO DAILY Allopurinol 300 Mg Tablet 1 Tab PO DAILY Abilify (Aripiprazole) 5 Mg Tablet 5 Mg PO DAILY Vitals/I & O Vital Sign - Last 24 Hours 02/08/16 02/08/16 02/08/16 02/08/16 13:44 14:05 14:46 15:00 Temp 96.3 97.7 96.3 97.7 Pulse 97 109 Resp 20 B/P 122/60 131/48 Pulse Ox 94 95 O2 Delivery Room Air Room Air Room Air 02/08/16 02/08/16 02/08/16 02/08/16 19:00 19:08 20:00 22:51 Temp 97.6 98.0 97.6 98.0 Pulse 114 113 Resp 21 20 B/P 138/72 139/74 Pulse Ox 96 95 93 O2 Delivery Room Air Room Air Room Air Room Air 02/09/16 02/09/16 02/09/16 02/09/16 02:57 04:43 07:45 07:56 Temp 97.5 97.9 97.5 97.9 Pulse 114 125 Resp 19 20 B/P 140/74 168/91 Pulse Ox 93 96 93 93 O2 Delivery Room Air Room Air Room Air Room Air 02/09/16 02/09/16 02/09/16 10:17 10:38 11:15 Temp 97.8 97.8 Pulse 125 108 Resp 20 B/P 168/91 119/75 Pulse Ox 96 97 O2 Delivery Room Air Room Air Intake and Output 02/08/16 02/08/16 02/09/16 15:00 23:00 07:00 Intake Total 118 ml 600 ml Output Total 1750 ml 600 ml Balance 118 ml -1750 ml 0 ml LARS ODONNELL MD Feb 09, 2016 13:17
[2016-02-09 14:15] VITALS: BP 110/54
--- NOTE | 2016-02-09 15:05 | CARD ---
APPROVED REPORT EXAM: Two-dimensional and M-mode echocardiogram with Doppler and color Doppler. Other Information Quality : FairHR: 95bpm INDICATION Congenital Heart Disease 2D DIMENSIONS Left Atrium(2D)4.1 (1.6-4.0cm)IVSd1.1 (0.7-1.1cm) Aortic Root(2D)3.3 (2.0-3.7cm)LVDd5.1 (3.9-5.9cm) LVOT Diameter2.9 (1.8-2.4cm)PWd1.1 (0.7-1.1cm) LVDs4.3 (2.5-4.0cm)FS (%) 15.9 % SV41.1 mlCO3.9 L/min M-Mode DIMENSIONS Aortic Cusp Exc1.61 (1.5-2.0cm) Aortic Valve AoV Peak Mj.129.7cm/sAoV VTI20.2cm AO Peak GR.6.7mmHgLVOT VTI 15.06cm AO Mean GR.4mmHgAVA (VTI)4.90cm2 AI P 1/2 [id number] Mitral Valve MV E Szcxayon022.8cm/sMV E Peak Gr.7mmHg MV DECEL [id number] A Mphyyxut07.1cm/s MV HAY60inS/A Ratio2.1 MV A [id number] (PHT)4.58cm2 TDI Lateral E' P. V10.44cm/sMedial E' P. V9.99cm/s E/Lateral E'13.9E/Medial E'14.5 Tricuspid Valve TR P. Tvrucvwu481pb/sRAP [id number] TR Peak Gr.59jtKoLCAG12rcMq LEFT VENTRICLE The left ventricle is normal size. There is normal left ventricular wall thickness. Left ventricular systolic function is moderately decreased. The Ejection Fraction is estimated at 35% on a technically difficult study. No left ventricle thrombus noted on this study. There is no ventricular septal defe ct visualized. There is no left ventricular aneurysm. There is no mass noted in the left ventricle. RIGHT VENTRICLE The right ventricle is normal size. There is normal right ventricular wall thickness. The right ventr icular systolic function is normal. ATRIA The left atrium size is normal. The right atrium size is normal. The interatrial septum is intact wit h no evidence for an atrial septal defect or patent foramen ovale as noted on 2-D or Doppler imaging. AORTIC VALVE The aortic valve is not well visualized. Doppler and Color Flow revealed mild aortic regurgitation. T here is no significant aortic valvular stenosis. MITRAL VALVE The mitral valve is normal in structure and function. There is no evidence of mitral valve prolapse. There is no mitral valve stenosis. Doppler and Color-flow revealed mild to moderate mitral regurgitat ion. TRICUSPID VALVE The tricuspid valve is normal in structure and function. Doppler and Color Flow revealed mild tricusp id regurgitation. There is no tricuspid valve prolapse or vegetation. There is no tricuspid valve roscoe nosis. PULMONIC VALVE The pulmonic valve is not well visualized. GREAT VESSELS The aortic root is normal in size. The IVC is normal in size and collapses >50% with inspiration. PERICARDIAL EFFUSION There is no pleural effusion. There is a trace circumferential pericardial effusion with no hemodynam ic significance. Critical Notification Critical Value: No <Conclusion> The left ventricle is normal size. Left ventricular systolic function is moderately decreased. The Ejection Fraction is estimated at 35% on a technically difficult study. There is no significant aortic valvular stenosis. Doppler and Color Flow revealed mild aortic regurgitation. Doppler and Color-flow revealed mild to moderate mitral regurgitation. Doppler and Color Flow revealed mild tricuspid regurgitation. There is a trace circumferential pericardial effusion with no hemodynamic significance.
--- NOTE | 2016-02-09 15:51 | PDOC ---
PULMONARY PROGRESS NOTES Subjective pt with no increase soa Vitals Vital Signs Date Time Temp Pulse Resp B/P Pulse Ox O2 Delivery O2 Flow Rate FiO2 02/09/16 15:24 96 Room Air 02/09/16 14:15 98.1 94 20 110/54 98.1 General: Alert Lungs: Clear Cardiovascular: S1, S2 Abdomen: Soft Neuro Exam: Alert Extremities: No Edema Skin: Warm Labs Laboratory Tests Test 02/08/16 05:20 02/08/16 11:35 02/08/16 17:35 02/09/16 04:21 White Blood Count 12.4x10^3/uL (4.0-11.0) Red Blood Count 4.53x10^6/uL (3.50-5.40) Hemoglobin 11.8g/dL (12.0-15.5) Hematocrit 37.6% (36.0-47.0) Mean Corpuscular Volume 83fL (79-100) Mean Corpuscular Hemoglobin 26pg (25-35) Mean Corpuscular Hemoglobin Concent 31g/dL (31-37) Red Cell Distribution Width 18.0% (11.5-14.5) Platelet Count 285x10^3/uL (140-400) Neutrophils (%) (Auto) 85% (31-73) Lymphocytes (%) (Auto) 10% (24-48) Monocytes (%) (Auto) 6% (0-9) Eosinophils (%) (Auto) 0% (0-3) Basophils (%) (Auto) 0% (0-3) Neutrophils # (Auto) 10.5x10^3uL (1.8-7.7) Lymphocytes # (Auto) 1.2x10^3/uL (1.0-4.8) Monocytes # (Auto) 0.7x10^3/uL (0.0-1.1) Eosinophils # (Auto) 0.0x10^3/uL (0.0-0.7) Basophils # (Auto) 0.0x10^3/uL (0.0-0.2) Sodium Level 143mmol/L (136-145) 146mmol/L (136-145) Potassium Level 4.3mmol/L (3.5-5.1) 4.2mmol/L (3.5-5.1) Chloride Level 104mmol/L (98-107) 105mmol/L (98-107) Carbon Dioxide Level 30mmol/L (21-32) 32mmol/L (21-32) Anion Gap 9 (6-14) 9 (6-14) Blood Urea Nitrogen 28mg/dL (7-20) 29mg/dL (7-20) Creatinine 1.2mg/dL (0.6-1.0) 1.2mg/dL (0.6-1.0) Estimated GFR (Cockcroft-Gault) 44.5 44.5 Glucose Level 128mg/dL (70-99) 109mg/dL (70-99) Calcium Level 8.7mg/dL (8.5-10.1) 8.3mg/dL (8.5-10.1) Total Bilirubin 0.2mg/dL (0.2-1.0) Direct Bilirubin 0.1mg/dL (0.0-0.2) Aspartate Amino Transf (AST/SGOT) 36U/L (15-37) Alanine Aminotransferase (ALT/SGPT) 49U/L (14-59) Alkaline Phosphatase 102U/L (46-116) Troponin I Quantitative 0.018ng/mL (0.000-0.055) < 0.017ng/mL (0.000-0.055) < 0.017ng/mL (0.000-0.055) 0.029ng/mL (0.000-0.055) FO-Qis-Z-Type Natriuretic Peptide 3122pg/mL (0-124) Total Protein 6.8g/dL (6.4-8.2) Albumin 3.2g/dL (3.4-5.0) Lipase 192U/L (73-393) Thyroid Stimulating Hormone (TSH) 1.930uIU/mL (0.358-3.74) Triglycerides Level 138mg/dL (0-150) Cholesterol Level 161mg/dL (0-200) LDL Cholesterol, Calculated 71mg/dL (0-100) VLDL Cholesterol, Calculated 28mg/dL (0-40) HDL Cholesterol 62mg/dL (40-60) Cholesterol/HDL Ratio 2.6 Laboratory Tests Test 02/08/16 17:35 02/09/16 04:21 Troponin I Quantitative < 0.017ng/mL (0.000-0.055) 0.029ng/mL (0.000-0.055) Thyroid Stimulating Hormone (TSH) 1.930uIU/mL (0.358-3.74) Sodium Level 146mmol/L (136-145) Potassium Level 4.2mmol/L (3.5-5.1) Chloride Level 105mmol/L (98-107) Carbon Dioxide Level 32mmol/L (21-32) Anion Gap 9 (6-14) Blood Urea Nitrogen 29mg/dL (7-20) Creatinine 1.2mg/dL (0.6-1.0) Estimated GFR (Cockcroft-Gault) 44.5 Glucose Level 109mg/dL (70-99) Calcium Level 8.3mg/dL (8.5-10.1) Triglycerides Level 138mg/dL (0-150) Cholesterol Level 161mg/dL (0-200) LDL Cholesterol, Calculated 71mg/dL (0-100) VLDL Cholesterol, Calculated 28mg/dL (0-40) HDL Cholesterol 62mg/dL (40-60) Cholesterol/HDL Ratio 2.6 Medications Active Scripts Medications Dose Route/Sig Days Date Category Xanax (Alprazolam) 0.5 Mg Tablet 1 Tab PO BID 02/08/16 Reported Venlafaxine Hcl Er (Venlafaxine Hcl) 225 Mg Tab.er.24 1 Tab PO DAILY 02/08/16 Reported Synthroid (Levothyroxine Sodium) 50 Mcg Tablet 1 Tab PO DAILY 02/08/16 Reported Prilosec Otc (Omeprazole Magnesium) 20 Mg Tablet.dr 1 Tab PO DAILY 02/08/16 Reported Metoprolol Tartrate 25 Mg Tablet 1 Tab PO BID 02/08/16 Reported Magnesium Oxide 400 Mg Tablet 1 Tab PO DAILY 02/08/16 Reported Lipitor (Atorvastatin Calcium) 40 Mg Tablet 1 Tab PO DAILY 02/08/16 Reported Potassium Chloride 20 Meq Tablet.er 20 Meq PO DAILY 02/08/16 Reported Aspirin 81 Mg Tab.chew 1 Tab PO DAILY 02/08/16 Reported Allopurinol 300 Mg Tablet 1 Tab PO DAILY 02/08/16 Reported Abilify (Aripiprazole) 5 Mg Tablet 5 Mg PO DAILY 02/08/16 Reported Impression . 1. Clinical presentation compatible with obstructive sleep apnea. 2. Chronic obstructive pulmonary disease with recent acute exacerbation. 3. Coronary artery disease with previous coronary artery bypass grafting. 4. Obesity. 5. Hypertension. 6. Tobacco dependence. 7. Hypothyroidism. 8. Cardiomyopathy 35% Plan . 02 Q for now I will set up outpt sleep study d/c in am PAULINE GREEN MD Feb 09, 2016 15:51
--- NOTE | 2016-02-09 18:14 | PDOC ---
PROGRESS NOTES Chief Complaint Chief Complaint sleep apnea 1. dyspnea, 2/2 to SHERRY likely 2. h/o CAD with CABG 3. STABLE chf, possible systolic 4. anxiety 5. GERD 6. HLD 7. HTN 8. hypothyroidism plan: 1. pulm, card consulted 2. echo is ok 3. need home meds 4. duoneb lasix x1 with card hope to dc tm with night o2 History of Present Illness History of Present Illness still sleep apnea got sleep study last night Vitals Vitals Vital Signs Date Time Temp Pulse Resp B/P Pulse Ox O2 Delivery O2 Flow Rate FiO2 02/09/16 15:24 96 Room Air 02/09/16 14:15 98.1 94 20 110/54 98.1 Physical Exam General: Alert, Oriented X3, No acute distress Heart: Regular rate, Normal S1 Lungs: Clear Abdomen: Normal bowel sounds Extremities: No clubbing, No cyanosis Skin: No rashes Labs LABS Laboratory Tests Test 02/09/16 04:21 Sodium Level 146mmol/L (136-145) Potassium Level 4.2mmol/L (3.5-5.1) Chloride Level 105mmol/L (98-107) Carbon Dioxide Level 32mmol/L (21-32) Anion Gap 9 (6-14) Blood Urea Nitrogen 29mg/dL (7-20) Creatinine 1.2mg/dL (0.6-1.0) Estimated GFR (Cockcroft-Gault) 44.5 Glucose Level 109mg/dL (70-99) Calcium Level 8.3mg/dL (8.5-10.1) Troponin I Quantitative 0.029ng/mL (0.000-0.055) Triglycerides Level 138mg/dL (0-150) Cholesterol Level 161mg/dL (0-200) LDL Cholesterol, Calculated 71mg/dL (0-100) VLDL Cholesterol, Calculated 28mg/dL (0-40) HDL Cholesterol 62mg/dL (40-60) Cholesterol/HDL Ratio 2.6 Review of Systems Review of Systems no fever, chills, sob or chest pain Assessment and Plan Assessmemt and Plan Problems Medical Problems: (1) Shortness of breath Status: Acute Problems: Comment Review of Relevant I have reviewed the following items jarcoho (where applicable) has been applied. Labs Laboratory Tests Test 02/08/16 05:20 02/08/16 11:35 02/08/16 17:35 02/09/16 04:21 White Blood Count 12.4x10^3/uL (4.0-11.0) Red Blood Count 4.53x10^6/uL (3.50-5.40) Hemoglobin 11.8g/dL (12.0-15.5) Hematocrit 37.6% (36.0-47.0) Mean Corpuscular Volume 83fL (79-100) Mean Corpuscular Hemoglobin 26pg (25-35) Mean Corpuscular Hemoglobin Concent 31g/dL (31-37) Red Cell Distribution Width 18.0% (11.5-14.5) Platelet Count 285x10^3/uL (140-400) Neutrophils (%) (Auto) 85% (31-73) Lymphocytes (%) (Auto) 10% (24-48) Monocytes (%) (Auto) 6% (0-9) Eosinophils (%) (Auto) 0% (0-3) Basophils (%) (Auto) 0% (0-3) Neutrophils # (Auto) 10.5x10^3uL (1.8-7.7) Lymphocytes # (Auto) 1.2x10^3/uL (1.0-4.8) Monocytes # (Auto) 0.7x10^3/uL (0.0-1.1) Eosinophils # (Auto) 0.0x10^3/uL (0.0-0.7) Basophils # (Auto) 0.0x10^3/uL (0.0-0.2) Sodium Level 143mmol/L (136-145) 146mmol/L (136-145) Potassium Level 4.3mmol/L (3.5-5.1) 4.2mmol/L (3.5-5.1) Chloride Level 104mmol/L (98-107) 105mmol/L (98-107) Carbon Dioxide Level 30mmol/L (21-32) 32mmol/L (21-32) Anion Gap 9 (6-14) 9 (6-14) Blood Urea Nitrogen 28mg/dL (7-20) 29mg/dL (7-20) Creatinine 1.2mg/dL (0.6-1.0) 1.2mg/dL (0.6-1.0) Estimated GFR (Cockcroft-Gault) 44.5 44.5 Glucose Level 128mg/dL (70-99) 109mg/dL (70-99) Calcium Level 8.7mg/dL (8.5-10.1) 8.3mg/dL (8.5-10.1) Total Bilirubin 0.2mg/dL (0.2-1.0) Direct Bilirubin 0.1mg/dL (0.0-0.2) Aspartate Amino Transf (AST/SGOT) 36U/L (15-37) Alanine Aminotransferase (ALT/SGPT) 49U/L (14-59) Alkaline Phosphatase 102U/L (46-116) Troponin I Quantitative 0.018ng/mL (0.000-0.055) < 0.017ng/mL (0.000-0.055) < 0.017ng/mL (0.000-0.055) 0.029ng/mL (0.000-0.055) TC-Luo-T-Type Natriuretic Peptide 3122pg/mL (0-124) Total Protein 6.8g/dL (6.4-8.2) Albumin 3.2g/dL (3.4-5.0) Lipase 192U/L (73-393) Thyroid Stimulating Hormone (TSH) 1.930uIU/mL (0.358-3.74) Triglycerides Level 138mg/dL (0-150) Cholesterol Level 161mg/dL (0-200) LDL Cholesterol, Calculated 71mg/dL (0-100) VLDL Cholesterol, Calculated 28mg/dL (0-40) HDL Cholesterol 62mg/dL (40-60) Cholesterol/HDL Ratio 2.6 Laboratory Tests Test 02/09/16 04:21 Sodium Level 146mmol/L (136-145) Potassium Level 4.2mmol/L (3.5-5.1) Chloride Level 105mmol/L (98-107) Carbon Dioxide Level 32mmol/L (21-32) Anion Gap 9 (6-14) Blood Urea Nitrogen 29mg/dL (7-20) Creatinine 1.2mg/dL (0.6-1.0) Estimated GFR (Cockcroft-Gault) 44.5 Glucose Level 109mg/dL (70-99) Calcium Level 8.3mg/dL (8.5-10.1) Troponin I Quantitative 0.029ng/mL (0.000-0.055) Triglycerides Level 138mg/dL (0-150) Cholesterol Level 161mg/dL (0-200) LDL Cholesterol, Calculated 71mg/dL (0-100) VLDL Cholesterol, Calculated 28mg/dL (0-40) HDL Cholesterol 62mg/dL (40-60) Cholesterol/HDL Ratio 2.6 Medications Current Medications Aspirin (Children'S Aspirin) 324 mg 1X ONCE PO Last administered on at 05:25; Start 02/08/16 at 05:30; Stop 02/08/16 at 05:31; Status DC Ondansetron HCl (Zofran) 4 mg PRN Q8HRS PRN IV NAUSEA/VOMITING; Start at 05:30; Stop 02/09/16 at 05:29; Status DC Morphine Sulfate 2 mg PRN Q2HR PRN IV PAIN; Start 02/08/16 at 05:30; Stop 02/08 at 05:29; Status DC Acetaminophen (Tylenol) 650 mg PRN Q6HRS PRN PO MILD PAIN / TEMP; Start at 10:30 Ondansetron HCl (Zofran) 4 mg PRN Q6HRS PRN IV NAUSEA/VOMITING; Start at 10:30 Albuterol/ Ipratropium (Duoneb) 3 ml RTQID NEB Last administered on 02/09/16 15 :23; Start 02/08/16 at 12:00 Albuterol Sulfate (Ventolin Neb Soln) 2.5 mg PRN Q4HRS PRN NEB SHORTNESS OF BREATH Last administered on 02/09/16 04:43; Start 02/08/16 at 10:30 Hydralazine HCl (Apresoline) 10 mg PRN Q4HRS PRN IVP ELEVATED BP, SEE COMMENTS ; Start 02/08/16 at 10:30 Enoxaparin Sodium (Lovenox 40mg Syringe) 40 mg Q24H SQ Last administered on 02/08 11:48; Start 02/08/16 at 11:00; Stop 02/09/16 at 14:19; Status DC Furosemide (Lasix) 20 mg 1X ONCE IVP ; Start 02/08/16 at 12:45; Stop at 12:46; Status Cancel Furosemide (Lasix) 20 mg 1X ONCE IVP Last administered on 02/08/16at 17:34; Start 02/08/16 at 17:00; Stop 02/08/16 at 17:01; Status DC Allopurinol (Zyloprim) 300 mg DAILY PO Last administered on 02/09/16 10:16; Start 02/09/16 at 10:00 Alprazolam (Xanax) 0.5 mg BID PO Last administered on 02/09/16 10:17; Start 02/09/16 at 10:00 Aripiprazole (Abilify) 5 mg DAILY PO Last administered on 02/09/16 10:16; Start 02/09/16 at 10:00 Aspirin (Children'S Aspirin) 81 mg DAILY PO Last administered on 02/09/16 10:17 ; Start 02/09/16 at 10:00 Atorvastatin Calcium (Lipitor) 40 mg QHS PO ; Start 02/09/16 at 21:00 Levothyroxine Sodium (Synthroid) 50 mcg DAILY PO Last administered on 02/09/16 10:17; Start 02/09/16 at 10:30 Magnesium Oxide (Magnesium Oxide) 400 mg DAILY PO Last administered on 10:16; Start 02/09/16 at 10:00 Metoprolol Tartrate (Lopressor) 25 mg BID PO Last administered on 02/09/16 10: 17; Start 02/09/16 at 10:00 Pantoprazole Sodium (Protonix) 40 mg DAILYAC PO Last administered on 02/09/16 11:48; Start 02/09/16 at 11:30 Potassium Chloride (Klor-Con) 20 meq DAILYWBKFT PO Last administered on 10:16; Start 02/09/16 at 10:00 Venlafaxine HCl (Effexor) 225 mg DAILY PO Last administered on 02/09/16 10:17; Start 02/09/16 at 09:30; Stop 02/09/16 at 14:26; Status DC Enoxaparin Sodium (Lovenox 40mg Syringe) 40 mg Q12HR SQ ; Start 02/09/16 at 21:00 Venlafaxine HCl (Effexor) 75 mg TID PO ; Start 02/10/16 at 09:00 Active Scripts Active Reported Xanax (Alprazolam) 0.5 Mg Tablet 1 Tab PO BID Venlafaxine Hcl Er (Venlafaxine Hcl) 225 Mg Tab.er.24 1 Tab PO DAILY Synthroid (Levothyroxine Sodium) 50 Mcg Tablet 1 Tab PO DAILY Prilosec Otc (Omeprazole Magnesium) 20 Mg Tablet.dr 1 Tab PO DAILY Metoprolol Tartrate 25 Mg Tablet 1 Tab PO BID Magnesium Oxide 400 Mg Tablet 1 Tab PO DAILY Lipitor (Atorvastatin Calcium) 40 Mg Tablet 1 Tab PO DAILY Potassium Chloride 20 Meq Tablet.er 20 Meq PO DAILY Aspirin 81 Mg Tab.chew 1 Tab PO DAILY Allopurinol 300 Mg Tablet 1 Tab PO DAILY Abilify (Aripiprazole) 5 Mg Tablet 5 Mg PO DAILY Vitals/I & O Vital Sign - Last 24 Hours 02/08/16 02/08/16 02/08/16 02/08/16 19:00 19:08 20:00 22:51 Temp 97.6 98.0 97.6 98.0 Pulse 114 113 Resp 21 20 B/P 138/72 139/74 Pulse Ox 96 95 93 O2 Delivery Room Air Room Air Room Air Room Air 02/09/16 02/09/16 02/09/16 02/09/16 02:57 04:43 07:45 07:56 Temp 97.5 97.9 97.5 97.9 Pulse 114 125 Resp 19 20 B/P 140/74 168/91 Pulse Ox 93 96 93 93 O2 Delivery Room Air Room Air Room Air Room Air 02/09/16 02/09/16 02/09/16 02/09/16 10:17 10:38 11:15 14:15 Temp 97.8 98.1 97.8 98.1 Pulse 125 108 94 Resp 20 20 B/P 168/91 119/75 110/54 Pulse Ox 96 97 95 O2 Delivery Room Air Room Air Room Air 02/09/16 15:24 Pulse Ox 96 O2 Delivery Room Air Intake and Output 02/08/16 02/08/16 02/09/16 15:00 23:00 07:00 Intake Total 118 ml 600 ml Output Total 1750 ml 600 ml Balance 118 ml -1750 ml 0 ml FOUZIA DAMON MD Feb 09, 2016 18:14
[2016-02-09 20:12] VITALS: BP 128/64
[2016-02-09] MEDS ORDERED: ATORVASTATIN CALCIUM 40 MG TABLET. PO SCH (21:00)
[2016-02-09 23:19] VITALS: BP 126/67
[2016-02-10 03:30] VITALS: BP 119/70
[2016-02-10] MEDS: IPRATRPIUM/ALBUTEROL 0.5/2.5MG 3 ML NEBU. NEB SCH ×3 (07:14→15:06)
[2016-02-10 07:35] VITALS: BP 130/66
[2016-02-10] MEDS: PANTOPRAZOLE 40 MG TABLET. PO SCH (08:04)
[2016-02-10] MEDS: ALPRAZOLAM 0.5 MG TABLET PO SCH (08:04)
[2016-02-10] MEDS: MAGNESIUM OXIDE 400 MG TABLET PO SCH (08:04)
[2016-02-10] MEDS: ASPIRIN 81 MG TAB.CHEW PO SCH (08:04)
[2016-02-10] MEDS: ENOXAPARIN 40 MG/0.4 ML DISP.SYRIN. SQ SCH (08:04)
[2016-02-10] MEDS: VENLAFAXINE 75 MG TABLET. PO SCH ×2 (08:04→14:00)
[2016-02-10] MEDS: ALLOPURINOL 300 MG TABLET. PO SCH (08:04)
[2016-02-10] MEDS: POTASSIUM CHLORIDE 20 MEQ TABLET.ER. PO SCH (08:05)
[2016-02-10] MEDS: LEVOTHYROXINE 50 MCG TABLET PO SCH (08:05)
[2016-02-10] MEDS: ARIPIPRAZOLE 5 MG TABLET. PO SCH (08:05)
[2016-02-10] MEDS: METOPROLOL TART IMMED RELEASE 25 MG TABLET PO SCH (08:06)
[2016-02-10 10:28] VITALS: BP 127/68
--- NOTE | 2016-02-10 12:19 | PDOC ---
PROGRESS NOTES Chief Complaint Chief Complaint sleep apnea 1. dyspnea, 2/2 to SHERRY likely 2. h/o CAD with CABG 3. STABLE chf, possible systolic 4. anxiety 5. GERD 6. HLD 7. HTN 8. hypothyroidism History of Present Illness History of Present Illness Patient continues to complain of cough and wheezing. Denies increase in shortness of air. Vitals Vitals Vital Signs Date Time Temp Pulse Resp B/P Pulse Ox O2 Delivery O2 Flow Rate FiO2 02/10/16 10:58 Nasal Cannula 2.0 02/10/16 10:28 97.7 96 18 127/68 95 97.7 Physical Exam General: Alert, Oriented X3, No acute distress Heart: Regular rate, Normal S1 Lungs: Wheezing (R sided), Crackles (L sided) Abdomen: Normal bowel sounds Extremities: No clubbing, No cyanosis Skin: No rashes Review of Systems Review of Systems complaints of cough. denies fever, chills, chest pain. Assessment and Plan Assessmemt and Plan ASSESSMENT: 1. dyspnea, 2/2 to SHERRY likely 2. h/o CAD with CABG 3. STABLE chf, possible systolic 4. anxiety 5. GERD 6. HLD 7. HTN 8. hypothyroidism PLAN: 1. continue current treatment 2. continue nebs/O2 3. appreciate pulm input. Problems: Comment Review of Relevant I have reviewed the following items jarocho (where applicable) has been applied. Labs Laboratory Tests Test 02/08/16 17:35 02/09/16 04:21 Troponin I Quantitative < 0.017ng/mL (0.000-0.055) 0.029ng/mL (0.000-0.055) Thyroid Stimulating Hormone (TSH) 1.930uIU/mL (0.358-3.74) Sodium Level 146mmol/L (136-145) Potassium Level 4.2mmol/L (3.5-5.1) Chloride Level 105mmol/L (98-107) Carbon Dioxide Level 32mmol/L (21-32) Anion Gap 9 (6-14) Blood Urea Nitrogen 29mg/dL (7-20) Creatinine 1.2mg/dL (0.6-1.0) Estimated GFR (Cockcroft-Gault) 44.5 Glucose Level 109mg/dL (70-99) Calcium Level 8.3mg/dL (8.5-10.1) Triglycerides Level 138mg/dL (0-150) Cholesterol Level 161mg/dL (0-200) LDL Cholesterol, Calculated 71mg/dL (0-100) VLDL Cholesterol, Calculated 28mg/dL (0-40) HDL Cholesterol 62mg/dL (40-60) Cholesterol/HDL Ratio 2.6 Medications Current Medications Aspirin (Children'S Aspirin) 324 mg 1X ONCE PO Last administered on at 05:25; Start 02/08/16 at 05:30; Stop 02/08/16 at 05:31; Status DC Ondansetron HCl (Zofran) 4 mg PRN Q8HRS PRN IV NAUSEA/VOMITING; Start at 05:30; Stop 02/09/16 at 05:29; Status DC Morphine Sulfate 2 mg PRN Q2HR PRN IV PAIN; Start 02/08/16 at 05:30; Stop 02/08 at 05:29; Status DC Acetaminophen (Tylenol) 650 mg PRN Q6HRS PRN PO MILD PAIN / TEMP; Start at 10:30 Ondansetron HCl (Zofran) 4 mg PRN Q6HRS PRN IV NAUSEA/VOMITING; Start at 10:30 Albuterol/ Ipratropium (Duoneb) 3 ml RTQID NEB Last administered on 02/10/16 10 :57; Start 02/08/16 at 12:00 Albuterol Sulfate (Ventolin Neb Soln) 2.5 mg PRN Q4HRS PRN NEB SHORTNESS OF BREATH Last administered on 02/09/16 04:43; Start 02/08/16 at 10:30 Hydralazine HCl (Apresoline) 10 mg PRN Q4HRS PRN IVP ELEVATED BP, SEE COMMENTS ; Start 02/08/16 at 10:30 Enoxaparin Sodium (Lovenox 40mg Syringe) 40 mg Q24H SQ Last administered on 02/08 11:48; Start 02/08/16 at 11:00; Stop 02/09/16 at 14:19; Status DC Furosemide (Lasix) 20 mg 1X ONCE IVP ; Start 02/08/16 at 12:45; Stop at 12:46; Status Cancel Furosemide (Lasix) 20 mg 1X ONCE IVP Last administered on 02/08/16at 17:34; Start 02/08/16 at 17:00; Stop 02/08/16 at 17:01; Status DC Allopurinol (Zyloprim) 300 mg DAILY PO Last administered on 02/10/16 08:04; Start 02/09/16 at 10:00 Alprazolam (Xanax) 0.5 mg BID PO Last administered on 02/10/16 08:04; Start 02/09/16 at 10:00 Aripiprazole (Abilify) 5 mg DAILY PO Last administered on 02/10/16 08:05; Start 02/09/16 at 10:00 Aspirin (Children'S Aspirin) 81 mg DAILY PO Last administered on 02/10/16 08:04 ; Start 02/09/16 at 10:00 Atorvastatin Calcium (Lipitor) 40 mg QHS PO Last administered on 02/09/16 20:22 ; Start 02/09/16 at 21:00 Levothyroxine Sodium (Synthroid) 50 mcg DAILY PO Last administered on 02/10/16 08:05; Start 02/09/16 at 10:30 Magnesium Oxide (Magnesium Oxide) 400 mg DAILY PO Last administered on 08:04; Start 02/09/16 at 10:00 Metoprolol Tartrate (Lopressor) 25 mg BID PO Last administered on 02/10/16 08: 06; Start 02/09/16 at 10:00 Pantoprazole Sodium (Protonix) 40 mg DAILYAC PO Last administered on 02/10/16 08:04; Start 02/09/16 at 11:30 Potassium Chloride (Klor-Con) 20 meq DAILYWBKFT PO Last administered on 08:05; Start 02/09/16 at 10:00 Venlafaxine HCl (Effexor) 225 mg DAILY PO Last administered on 02/09/16 10:17; Start 02/09/16 at 09:30; Stop 02/09/16 at 14:26; Status DC Enoxaparin Sodium (Lovenox 40mg Syringe) 40 mg Q12HR SQ Last administered on 08:04; Start 02/09/16 at 21:00 Venlafaxine HCl (Effexor) 75 mg TID PO Last administered on 02/10/16t 08:04; Start 02/10/16 at 09:00 Active Scripts Active Reported Xanax (Alprazolam) 0.5 Mg Tablet 1 Tab PO BID Venlafaxine Hcl Er (Venlafaxine Hcl) 225 Mg Tab.er.24 1 Tab PO DAILY Synthroid (Levothyroxine Sodium) 50 Mcg Tablet 1 Tab PO DAILY Prilosec Otc (Omeprazole Magnesium) 20 Mg Tablet.dr 1 Tab PO DAILY Metoprolol Tartrate 25 Mg Tablet 1 Tab PO BID Magnesium Oxide 400 Mg Tablet 1 Tab PO DAILY Lipitor (Atorvastatin Calcium) 40 Mg Tablet 1 Tab PO DAILY Potassium Chloride 20 Meq Tablet.er 20 Meq PO DAILY Aspirin 81 Mg Tab.chew 1 Tab PO DAILY Allopurinol 300 Mg Tablet 1 Tab PO DAILY Abilify (Aripiprazole) 5 Mg Tablet 5 Mg PO DAILY Vitals/I & O Vital Sign - Last 24 Hours 02/09/16 02/09/16 02/09/16 02/09/16 14:15 15:24 19:18 20:12 Temp 98.1 98.5 98.1 98.5 Pulse 94 114 Resp 20 20 B/P 110/54 128/64 Pulse Ox 95 96 96 97 O2 Delivery Room Air Room Air Room Air Room Air 02/09/16 02/09/16 02/09/16 02/10/16 20:22 20:22 23:19 03:30 Temp 98.1 97.8 98.1 97.8 Pulse 114 101 95 Resp 20 18 B/P 128/64 126/67 119/70 Pulse Ox 98 95 O2 Delivery Room Air Nasal Cannula Room Air O2 Flow Rate 2.0 02/10/16 02/10/16 02/10/16 02/10/16 07:15 07:35 08:00 08:06 Temp 98.1 98.1 Pulse 103 103 Resp 18 B/P 130/66 130/66 Pulse Ox 96 97 O2 Delivery Nasal Cannula Nasal Cannula Room Air O2 Flow Rate 2.0 2.0 2.0 02/10/16 02/10/16 10:28 10:58 Temp 97.7 97.7 Pulse 96 Resp 18 B/P 127/68 Pulse Ox 95 O2 Delivery Nasal Cannula Nasal Cannula O2 Flow Rate 2.0 2.0 Intake and Output 1/1/17 1/1/17 1/2/17 15:00 23:00 07:00 Intake Total 880 ml 180 ml Output Total 600 ml 300 ml Balance 280 ml -120 ml LAILA DYSON III DO Feb 10, 2016 12:19
[2016-02-10 15:20] VITALS: BP 105/48
--- NOTE | 2016-02-10 16:13 | PDOC ---
PULMONARY PROGRESS NOTES Subjective pt with no increase soa Vitals Vital Signs Date Time Temp Pulse Resp B/P Pulse Ox O2 Delivery O2 Flow Rate FiO2 02/10/16 15:20 100.8 81 18 105/48 96 Nasal Cannula 2.0 100.8 General: Alert Lungs: Wheezing (R sided), Crackles (L sided) Cardiovascular: S1, S2 Abdomen: Soft Neuro Exam: Alert Extremities: No Edema Skin: Warm Labs Laboratory Tests Test 02/08/16 17:35 02/09/16 04:21 Troponin I Quantitative < 0.017ng/mL (0.000-0.055) 0.029ng/mL (0.000-0.055) Thyroid Stimulating Hormone (TSH) 1.930uIU/mL (0.358-3.74) Sodium Level 146mmol/L (136-145) Potassium Level 4.2mmol/L (3.5-5.1) Chloride Level 105mmol/L (98-107) Carbon Dioxide Level 32mmol/L (21-32) Anion Gap 9 (6-14) Blood Urea Nitrogen 29mg/dL (7-20) Creatinine 1.2mg/dL (0.6-1.0) Estimated GFR (Cockcroft-Gault) 44.5 Glucose Level 109mg/dL (70-99) Calcium Level 8.3mg/dL (8.5-10.1) Triglycerides Level 138mg/dL (0-150) Cholesterol Level 161mg/dL (0-200) LDL Cholesterol, Calculated 71mg/dL (0-100) VLDL Cholesterol, Calculated 28mg/dL (0-40) HDL Cholesterol 62mg/dL (40-60) Cholesterol/HDL Ratio 2.6 Medications Active Scripts Medications Dose Route/Sig Days Date Category Xanax (Alprazolam) 0.5 Mg Tablet 1 Tab PO BID 02/08/16 Reported Venlafaxine Hcl Er (Venlafaxine Hcl) 225 Mg Tab.er.24 1 Tab PO DAILY 02/08/16 Reported Synthroid (Levothyroxine Sodium) 50 Mcg Tablet 1 Tab PO DAILY 02/08/16 Reported Prilosec Otc (Omeprazole Magnesium) 20 Mg Tablet.dr 1 Tab PO DAILY 02/08/16 Reported Metoprolol Tartrate 25 Mg Tablet 1 Tab PO BID 02/08/16 Reported Magnesium Oxide 400 Mg Tablet 1 Tab PO DAILY 02/08/16 Reported Lipitor (Atorvastatin Calcium) 40 Mg Tablet 1 Tab PO DAILY 02/08/16 Reported Potassium Chloride 20 Meq Tablet.er 20 Meq PO DAILY 02/08/16 Reported Aspirin 81 Mg Tab.chew 1 Tab PO DAILY 02/08/16 Reported Allopurinol 300 Mg Tablet 1 Tab PO DAILY 02/08/16 Reported Abilify (Aripiprazole) 5 Mg Tablet 5 Mg PO DAILY 02/08/16 Reported Impression . 1. Clinical presentation compatible with obstructive sleep apnea. 2. Chronic obstructive pulmonary disease with recent acute exacerbation. 3. Coronary artery disease with previous coronary artery bypass grafting. 4. Obesity. 5. Hypertension. 6. Tobacco dependence. 7. Hypothyroidism. 8. Cardiomyopathy 35% Plan . 02 QHS for now I will set up outpt sleep study d/c TODAY PAULINE GREEN MD Feb 10, 2016 16:13
--- NOTE | 2016-02-10 17:25 | PDOC ---
PROGRESS NOTES Subjective Subjective The patient is feeling better. Objective Objective Vital Signs Date Time Temp Pulse Resp B/P Pulse Ox O2 Delivery O2 Flow Rate FiO2 02/10/16 15:20 100.8 81 18 105/48 96 Nasal Cannula 2.0 100.8 Intake and Output 02/10/16 07:00 Intake Total 1060 ml Output Total 900 ml Balance 160 ml Intake Oral 1060 ml Output Urine Total 900 ml # Voids 2 Physical Exam Abdomen: Normal bowel sounds Heart: Regular rate General: No acute distress Lungs: Clear to auscultation Assessment Assessment Problems Medical Problems: (1) Shortness of breath Status: Acute Assessment/Plan 1. Probable sleep apnea. The patient is improved. Continue as per the pulmonary service. 2. Mild acute on chronic systolic heart failure. The patient is feeling better today. BNP was mildly elevated. Echocardiogram pending. 3. History of bypass surgery. Mildly elevated BNP as above. No chest pain. No acute EKG changes. 4. Hypertension. Blood pressure is reasonably controlled. Continue present treatments. 5. Hypothyroidism. Continue present medications. Comment Review of Relevant I have reviewed the following items jarocho (where applicable) has been applied. Labs Laboratory Tests Test 02/08/16 17:35 02/09/16 04:21 Troponin I Quantitative < 0.017ng/mL (0.000-0.055) 0.029ng/mL (0.000-0.055) Thyroid Stimulating Hormone (TSH) 1.930uIU/mL (0.358-3.74) Sodium Level 146mmol/L (136-145) Potassium Level 4.2mmol/L (3.5-5.1) Chloride Level 105mmol/L (98-107) Carbon Dioxide Level 32mmol/L (21-32) Anion Gap 9 (6-14) Blood Urea Nitrogen 29mg/dL (7-20) Creatinine 1.2mg/dL (0.6-1.0) Estimated GFR (Cockcroft-Gault) 44.5 Glucose Level 109mg/dL (70-99) Calcium Level 8.3mg/dL (8.5-10.1) Triglycerides Level 138mg/dL (0-150) Cholesterol Level 161mg/dL (0-200) LDL Cholesterol, Calculated 71mg/dL (0-100) VLDL Cholesterol, Calculated 28mg/dL (0-40) HDL Cholesterol 62mg/dL (40-60) Cholesterol/HDL Ratio 2.6 Medications Current Medications Aspirin (Children'S Aspirin) 324 mg 1X ONCE PO Last administered on at 05:25; Start 02/08/16 at 05:30; Stop 02/08/16 at 05:31; Status DC Ondansetron HCl (Zofran) 4 mg PRN Q8HRS PRN IV NAUSEA/VOMITING; Start at 05:30; Stop 02/09/16 at 05:29; Status DC Morphine Sulfate 2 mg PRN Q2HR PRN IV PAIN; Start 02/08/16 at 05:30; Stop 02/08 at 05:29; Status DC Acetaminophen (Tylenol) 650 mg PRN Q6HRS PRN PO MILD PAIN / TEMP Last administered on 02/10/16 14:36; Start 02/08/16 at 10:30 Ondansetron HCl (Zofran) 4 mg PRN Q6HRS PRN IV NAUSEA/VOMITING; Start at 10:30 Albuterol/ Ipratropium (Duoneb) 3 ml RTQID NEB Last administered on 02/10/16 15 :06; Start 02/08/16 at 12:00 Albuterol Sulfate (Ventolin Neb Soln) 2.5 mg PRN Q4HRS PRN NEB SHORTNESS OF BREATH Last administered on 02/09/16 04:43; Start 02/08/16 at 10:30 Hydralazine HCl (Apresoline) 10 mg PRN Q4HRS PRN IVP ELEVATED BP, SEE COMMENTS ; Start 02/08/16 at 10:30 Enoxaparin Sodium (Lovenox 40mg Syringe) 40 mg Q24H SQ Last administered on 02/08 11:48; Start 02/08/16 at 11:00; Stop 02/09/16 at 14:19; Status DC Furosemide (Lasix) 20 mg 1X ONCE IVP ; Start 02/08/16 at 12:45; Stop at 12:46; Status Cancel Furosemide (Lasix) 20 mg 1X ONCE IVP Last administered on 02/08/16at 17:34; Start 02/08/16 at 17:00; Stop 02/08/16 at 17:01; Status DC Allopurinol (Zyloprim) 300 mg DAILY PO Last administered on 02/10/16 08:04; Start 02/09/16 at 10:00 Alprazolam (Xanax) 0.5 mg BID PO Last administered on 02/10/16 08:04; Start 02/09/16 at 10:00 Aripiprazole (Abilify) 5 mg DAILY PO Last administered on 02/10/16 08:05; Start 02/09/16 at 10:00 Aspirin (Children'S Aspirin) 81 mg DAILY PO Last administered on 02/10/16 08:04 ; Start 02/09/16 at 10:00 Atorvastatin Calcium (Lipitor) 40 mg QHS PO Last administered on 02/09/16 20:22 ; Start 02/09/16 at 21:00 Levothyroxine Sodium (Synthroid) 50 mcg DAILY PO Last administered on 02/10/16 08:05; Start 02/09/16 at 10:30 Magnesium Oxide (Magnesium Oxide) 400 mg DAILY PO Last administered on 08:04; Start 02/09/16 at 10:00 Metoprolol Tartrate (Lopressor) 25 mg BID PO Last administered on 02/10/16 08: 06; Start 02/09/16 at 10:00 Pantoprazole Sodium (Protonix) 40 mg DAILYAC PO Last administered on 02/10/16 08:04; Start 02/09/16 at 11:30 Potassium Chloride (Klor-Con) 20 meq DAILYWBKFT PO Last administered on 08:05; Start 02/09/16 at 10:00 Venlafaxine HCl (Effexor) 225 mg DAILY PO Last administered on 02/09/16 10:17; Start 02/09/16 at 09:30; Stop 02/09/16 at 14:26; Status DC Enoxaparin Sodium (Lovenox 40mg Syringe) 40 mg Q12HR SQ Last administered on 08:04; Start 02/09/16 at 21:00 Venlafaxine HCl (Effexor) 75 mg TID PO Last administered on 02/10/16 14:00; Start 02/10/16 at 09:00 Active Scripts Active Reported Xanax (Alprazolam) 0.5 Mg Tablet 1 Tab PO BID Venlafaxine Hcl Er (Venlafaxine Hcl) 225 Mg Tab.er.24 1 Tab PO DAILY Synthroid (Levothyroxine Sodium) 50 Mcg Tablet 1 Tab PO DAILY Prilosec Otc (Omeprazole Magnesium) 20 Mg Tablet.dr 1 Tab PO DAILY Metoprolol Tartrate 25 Mg Tablet 1 Tab PO BID Magnesium Oxide 400 Mg Tablet 1 Tab PO DAILY Lipitor (Atorvastatin Calcium) 40 Mg Tablet 1 Tab PO DAILY Potassium Chloride 20 Meq Tablet.er 20 Meq PO DAILY Aspirin 81 Mg Tab.chew 1 Tab PO DAILY Allopurinol 300 Mg Tablet 1 Tab PO DAILY Abilify (Aripiprazole) 5 Mg Tablet 5 Mg PO DAILY Vitals/I & O Vital Sign - Last 24 Hours 02/09/16 02/09/16 02/09/16 02/09/16 19:18 20:12 20:22 20:22 Temp 98.5 98.5 Pulse 114 114 Resp 20 B/P 128/64 128/64 Pulse Ox 96 97 O2 Delivery Room Air Room Air Room Air 02/09/16 02/10/16 02/10/16 02/10/16 23:19 03:30 07:15 07:35 Temp 98.1 97.8 98.1 98.1 97.8 98.1 Pulse 101 95 103 Resp 20 18 18 B/P 126/67 119/70 130/66 Pulse Ox 98 95 96 97 O2 Delivery Nasal Cannula Room Air Nasal Cannula Nasal Cannula O2 Flow Rate 2.0 2.0 2.0 02/10/16 02/10/16 02/10/16 02/10/16 08:00 08:06 10:28 10:58 Temp 97.7 97.7 Pulse 103 96 Resp 18 B/P 130/66 127/68 Pulse Ox 95 O2 Delivery Room Air Nasal Cannula Nasal Cannula O2 Flow Rate 2.0 2.0 2.0 02/10/16 02/10/16 15:07 15:20 Temp 100.8 100.8 Pulse 81 Resp 18 B/P 105/48 Pulse Ox 96 O2 Delivery Nasal Cannula Nasal Cannula O2 Flow Rate 2.0 2.0 Intake and Output 02/09/16 02/09/16 02/10/16 15:00 23:00 07:00 Intake Total 880 ml 180 ml Output Total 600 ml 300 ml Balance 280 ml -120 ml LARS ODONNELL MD Feb 10, 2016 17:25
--- NOTE | 2016-02-18 09:24 | DS ---
DATE OF DISCHARGE: 02/10/2016 ADMISSION DIAGNOSES: Chronic obstructive pulmonary disease exacerbation with respiratory failure, history of bypass surgery. DISCHARGE DIAGNOSIS: Resolving respiratory failure. HOSPITAL COURSE: The patient is a pleasant 70-year-old female who presented with respiratory failure. She has known COPD and history of coronary artery disease with bypass. She was admitted. We consulted Cardiology and Pulmonary. We gave her steroids, breathing treatments, oxygen, antibiotics, did some physical therapy, continued her home medicines. She returned to her baseline, we discharged to home. DISPOSITION: Home. ACTIVITY: As tolerated. DIET: Low sodium. MEDICATIONS: Please see the MRAD. TOTAL TIME ON DISCHARGE: 32 minutes. LAILA DYSON DO DR: NOEL/aleena JOB#: [id number] / [id number]
== END 2016-02-10 17:25 | disposition home or self-care (01) ==
LOC: ER 04:57 → 5 SOUTH 05:30
PROVIDERS: ADMIT Internal Medicine; ATTEND Internal Medicine
DX: I11.0 Hypertensive heart disease with heart failure (principal); I50.9 Heart failure, unspecified; I25.10 Atherosclerotic heart disease of native coronary artery without angina pectoris; E78.5 Hyperlipidemia, unspecified; J44.9 Chronic obstructive pulmonary disease, unspecified; Z87.891 Personal history of nicotine dependence; Z95.1 Presence of aortocoronary bypass graft; E03.9 Hypothyroidism, unspecified; Z79.899 Other long term (current) drug therapy; K21.9 Gastro-esophageal reflux disease without esophagitis; F41.9 Anxiety disorder, unspecified
CPT/HCPCS: 36415; 71010; 80048; 80061; 80076; 83690; 83880; 84443; 84484; 85027; 93005; 93306; 94250; 94640; 94760; 94799; 96372; 96374; 97165; G0378; G0379; J1650; J7620